=== PATIENT | female | born 1965 | race Caucasian/White ===

== ENCOUNTER 2025-07-04 11:15 | Outpatient (RCR) | payer OTHER, SELFPAY | END 2025-07-04 16:08 | disposition home or self-care (01) | PROVIDERS: Visit Provider Physician Assistant Medical | DX: I63.9 Cerebral infarction, unspecified (principal); Z51.89 Encounter for other specified aftercare | CPT/HCPCS: 97110; 97112; 97116; 97161; 97165; 97530; 97535; X5282 ==